=== PATIENT | male | born 1955 ===

== ENCOUNTER 2022-04-10 05:59 | Day surgery (SDC) | payer OTHER ==
[~2022-04-10] VITALS: Ht 152.4 cm; Wt 73.9 kg
== END 2022-04-10 13:15 | disposition home or self-care (01) ==
LOC: CIR.AMB 05:59
PROVIDERS: ATTEND Orthopaedic Surgery
DX: M75.121 Complete rotator cuff tear or rupture of right shoulder, not specified as traumatic (principal); M75.21 Bicipital tendinitis, right shoulder; M75.111 Incomplete rotator cuff tear or rupture of right shoulder, not specified as traumatic; Z20.822 Contact with and (suspected) exposure to COVID-19; Z88.8 Allergy status to other drugs, medicaments and biological substances; K21.9 Gastro-esophageal reflux disease without esophagitis

== ENCOUNTER 2022-12-11 10:14 | Day surgery (SDC) | payer OTHER ==
[~2022-12-11] VITALS: Ht 177.8 cm; Wt 74.8 kg
== END 2022-12-11 16:20 | disposition home or self-care (01) ==
LOC: CIR.AMB 10:14
PROVIDERS: ATTEND Orthopaedic Surgery
DX: M75.112 Incomplete rotator cuff tear or rupture of left shoulder, not specified as traumatic (principal); M24.112 Other articular cartilage disorders, left shoulder; Z88.8 Allergy status to other drugs, medicaments and biological substances; F17.210 Nicotine dependence, cigarettes, uncomplicated